=== PATIENT | female | born 1970 | race Caucasian/White ===

== ENCOUNTER 2024-01-25 12:13 | Observation (INO) | payer MEDICARE, MEDICAID, SELFPAY ==
[2024-01-25] VITALS (18 sets, daily range): BP systolic 108–120; BP diastolic 65–79; PULSE 70–83; TEMP 36.6–36.8; O2SAT 90–100; BMI 52.8; BMI 51.4
--- NOTE | 2024-01-25 12:31 | XR_ITS ---
The [address] [address] Patient Name: CHI GATES MRN: [id number] date: 1970 Sex: F Assigned Patient Location: ER Current Patient Location: ER Accession/Order Number: [id number] Exam Date: 01/25/2024 14:05 Report Date: 01/25/2024 14:19 At the request of: GASTON HOGAN Procedure: XR chest 2V EXAMINATION: XR chest 2V HISTORY: Shortness of breath COMPARISON: XR chest 09/03/2016 FINDINGS: LUNGS: No significant pulmonary parenchymal abnormalities. VASCULATURE: No increased pulmonary vasculature. PLEURA: No pneumothorax, effusion, or pleural thickening. CARDIAC: No cardiomegaly or cardiac silhouette abnormality. MEDIASTINUM: No visible mass or adenopathy. BONES: No fracture or visible bone lesion. OTHER: Negative. XR/XR chest 2V IMPRESSION: 1. No acute cardiopulmonary process. Electronically authenticated by: DAI HORNER Date: 01/25/2024 14:19
--- NOTE | 2024-01-25 12:31 | ECG_ITS ---
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
--- NOTE | 2024-01-25 12:31 | US_ITS ---
The [address] [address] Patient Name: CHI GATES MRN: [id number] date: 1970 Sex: F Assigned Patient Location: ER Current Patient Location: ER Accession/Order Number: [id number] Exam Date: 01/25/2024 12:55 Report Date: 01/25/2024 14:09 At the request of: GASTON HOGAN Procedure: US venous doppler LE LT EXAMINATION: US venous doppler LE LT HISTORY: sob , left leg swelling COMPARISON: No relevant comparison available. FINDINGS: REGION: Left lower extremity THROMBI: None. COMPRESSIBILITY: Normal compressibility. FLOW: Normal waveform and antegrade flow between 5 and 20 cm/s. OTHER: Prominent subcutaneous edema within calf. US/US venous doppler LE LT IMPRESSION: 1. No deep vein thrombus within the left lower extremity. 2. Slightly limited evaluation of calf veins due to subcutaneous edema. Electronically authenticated by: DAI HORNER Date: 01/25/2024 14:09
--- NOTE | 2024-01-25 12:33 | ED.GENADUL1 ---
HPI HPI - General Adult General Chief complaint: Shortness of Breath/Dyspnea Stated complaint: SWOLLEN LOWE EXTREMITIES Time Seen by Provider: 01/25/24 12:31 Source: patient Mode of arrival: walk-in Limitations: no limitations Related Data Allergies Allergy/AdvReac Type Severity Reaction Status Date / Time No Known Drug Allergies Allergy Verified 01/25/24 12:19 Opioid HPI Opioid Management Most Recent Opioid Data: No Data to Display Exam Constitutional Vital Signs, click to edit/add: Last Vital Signs Temp 97.8 F 01/25/24 12:19 Pulse 83 01/25/24 12:19 Resp 18 01/25/24 12:19 BP 120/65 01/25/24 12:19 Pulse Ox 97 01/25/24 12:19 O2 Del Method Room Air 01/25/24 12:19 Course Vital Signs Vital signs: Vital Signs Temperature 97.8 F 01/25/24 12:19 Pulse Rate 83 01/25/24 12:19 Respiratory Rate 18 01/25/24 12:19 Blood Pressure 120/65 01/25/24 12:19 Pulse Oximetry 97 01/25/24 12:19 Oxygen Delivery Method Room Air 01/25/24 12:19 Temperature 97.8 F 01/25/24 12:19 Pulse Rate 83 01/25/24 12:19 Respiratory Rate 18 01/25/24 12:19 Blood Pressure 120/65 01/25/24 12:19 Pulse Oximetry 97 01/25/24 12:19 Oxygen Delivery Method Room Air 01/25/24 12:19 Medical Decision Making ECG Data Attestation: I personally reviewed and interpreted this ECG as follows: (EKG interpretation. Normal sinus rhythm at 77 beats a minute. Normal axis deviation. No acute ST elevation, no acute ectopy. QTc of 412) Discharge Plan Discharge Chief Complaint: Shortness of Breath/Dyspnea Print Language: Mauritian Referrals: Physician,Non-Staff, MD [Primary Care Provider] - 1 week
[2024-01-25 12:45] LABS: Basophils Absolute Auto 0.1 10^3/uL (0.0-0.1); Basophils Percent Auto 0.8 % (0.2-2.0); Eosinophils Absolute Auto 0.3 10^3/uL (0.0-0.7); Eosinophils Percent Auto 2.8 % (0.9-7.0); Hematocrit 38.5 % (36.0-48.0); Hemoglobin 12.5 g/dL (12.0-16.0); Immature Granulocytes Abs Auto 0.06 10^3/uL (0.00-0.03); Immature Granulocytes Pct Auto 0.5 % (0.0-0.5); Lymphocytes Absolute Auto 2.8 10^3/uL (1.2-3.8); Lymphocytes Percent Auto 23.1 % (20.5-60.0); Mean Corpuscular HGB Conc 32.5 g/dL (29.9-35.2); Mean Corpuscular Hemoglobin 30.1 pg (26.7-34.0); Mean Corpuscular Volume 92.8 fL (81.0-99.0); Mean Platelet Volume 10.5 fL (9.5-13.5); Monocytes Absolute Auto 0.9 10^3/uL (0.3-0.8); Monocytes Percent Auto 7.5 % (1.7-12.0); Neutrophils Absolute Auto 7.8 10^3/uL (1.4-6.5); Neutrophils Percent Auto 65.3 % (43.0-75.0); Platelet Count 333 10^3/uL (150-450); Red Blood Count 4.15 10^6/uL (4.20-5.40); Red Cell Distribution Width 13.7 % (11.0-15.0)
[2024-01-25 13:11] LABS: Alanine Aminotransferase 27 U/L (14-59); Albumin Globulin Ratio 0.7; Albumin Level 2.8 g/dL (3.4-5.0); Alkaline Phosphatase 107 U/L (46-116); Anion Gap 11.6; Aspartate Amino Transferase 15 U/L (15-37); Bilirubin Total 0.2 mg/dL (0.2-1.0); Carbon Dioxide 30.3 mmol/L (21.0-32.0); Chloride 103 mmol/L (98-107); Estimated GFR (African America >60 (>=60); Estimated GFR (Non-African Ame >60 (>=60); Globulin 4.1 g/dL; Glucose 94 mg/dL (74-106); Potassium 3.9 mmol/L (3.5-5.1); Sodium 141 mmol/L (136-145); Total Protein 6.9 g/dL (6.4-8.2); Troponin I High Sensitivity 4.2 pg/mL (4.0-51.3)
[2024-01-25] MEDS: ALBUTEROL SULFATE 2.5 MG/3 ML VIAL NEB IH (13:27)
--- NOTE | 2024-01-25 13:29 | ED_ITS ---
Documented by User: JOY Nielson 01/25/24 15:20 HPI HPI - General Adult General Chief complaint: Shortness of Breath/Dyspnea Stated complaint: SWOLLEN LOWE EXTREMITIES Time Seen by Provider: 01/25/24 12:31 Source: patient Mode of arrival: walk-in Limitations: no limitations History of Present Illness HPI narrative: Patient is a 54-year-old female presents to the ER with concerns of shortness of breath and chest pain. Patient reports symptoms started 1 week ago, has noted a 12 pound weight gain over the course of a week with shortness of breath on e xertion and at rest. She smokes 1 pack/day, Patient was seen by her family doctor today and referred to the ER for more urgent workup. Patient notes that chest pain comes and goes at rest and with activity. Described as a heaviness, achiness across the chest. She denies any pleuritic pain. She notes progressive swelling in her extremities especially her left leg which she attributes to fluid retention. She reports a remote cardiac stress test years ago but no recent testing. Patient calm and in no distress at bedside. She denies recent cough or illness. Location: Reports chest Pain Consistency: Reports intermittent Exacerbating factors: Reports movement Treatments prior to arrival: Reports none Related Data Home Medications ?Medication ?Instructions ?Recorded ?Confirmed aripiprazole 10 mg tablet 10 mg PO .qhs 01/25/24 01/25/24 ergocalciferol (vitamin D2) 1,250 1,250 mcg PO .2 x week 01/25/24 01/25/24 mcg (50,000 unit) capsule levetiracetam 250 mg tablet 250 mg PO Q12H 01/25/24 01/25/24 levothyroxine 50 mcg tablet 50 mcg PO .qd 01/25/24 01/25/24 metformin 500 mg tablet,extended 500 mg PO .qd 01/25/24 01/25/24 release 24 hr paroxetine HCl 40 mg tablet 40 mg PO .qhs 01/25/24 01/25/24 potassium chloride 10 mEq 10 meq PO BID 01/25/24 01/25/24 capsule,extended release spironolactone 25 mg tablet 25 mg PO .qd 01/25/24 01/25/24 tizanidine 4 mg tablet 8 mg PO .qhs 01/25/24 01/25/24 topiramate 100 mg tablet 100 mg PO Q12H 01/25/24 01/25/24 Allergies Allergy/AdvReac Type Severity Reaction Status Date / Time No Known Drug Allergies Allergy Verified 01/25/24 12:19 Opioid HPI Opioid Management Most Recent Opioid Data: Last Pain Assessment 01/25/24 21:00 Last ORT Total Score 1 01/25/24 16:28 Last ORT Risk Category Low Risk 01/25/24 16:28 Review of Systems ROS Constitutional Denies: fever or chills Ears, nose, mouth, and throat Denies: throat pain or neck pain Cardiovascular Reports: chest pain, edema, swelling of feet/ankles and shortness of breath with exertion; Denies: palpitations Respiratory Reports: shortness of breath; Denies: cough or chest congestion Gastrointestinal Denies: abdominal pain, nausea or vomiting Musculoskeletal Reports: extremity swelling; Denies: back pain, neck pain or extremity pain Integumentary/Breast Denies: rash or itching Neurological Denies: headache Psychiatric Denies: anxiety Endocrine Denies: excessive urination Hematologic/Lymphatic Denies: easy bruising PFSH PFSH Medical History (Updated 01/25/24 @ 16:22 by Renee Crews) Diabetes ?E11.9 - Type 2 diabetes mellitus without complications (ICD-10) Hypothyroidism ?E03.9 - Hypothyroidism, unspecified (ICD-10) Anxiety ?F41.9 - Anxiety disorder, unspecified (ICD-10) Depression ?F32.A - Depression, unspecified (ICD-10) Surgical History (Updated 01/25/24 @ 16:22 by Renee Crews) H/O neck surgery ?Z98.890 - Other specified postprocedural states (ICD-10) Hx of tonsillectomy ?Z90.89 - Acquired absence of other organs (ICD-10) H/O left wrist surgery ?Z98.890 - Other specified postprocedural states (ICD-10) S/P foot surgery, left ?Z98.890 - Other specified postprocedural states (ICD-10) History of ankle surgery ?Z98.890 - Other specified postprocedural states (ICD-10) H/O: hysterectomy ?Z90.710 - Acquired absence of both cervix and uterus (ICD-10) Family History (Updated 01/25/24 @ 16:23 by Renee Crews) Mother Family history of CHF (congestive heart failure) Family history of COPD (chronic obstructive pulmonary disease) Family history of diabetes mellitus Family history of hypertension Family history of stroke Father Family history of diabetes mellitus Social History (Updated 01/25/24 @ 16:25 by Renee Crews) Within the past year, how often did you have a drink containing alcohol: never Score interpretation: A score less than 3 is consistent with normal alcohol consumption. Smoking status: Current every day smoker Nicotine containing products detail: 1 pack a day Non-prescribed substance use: denies use Highest level of school completed/degree received: high school graduate Are you now , , , , never or living with a partner: In a typical week, how many times do you talk on the telephone with family, friends, or neighbors: 3 or more times per week How often do you get together with friends or relatives: twice per week How often do you attend hinduism or voodoo services: never Do you belong to any clubs or organizations such as hinduism groups unions, fraternal or athletic groups, or school groups: no Total score: 1 Score interpretation: A score of less than or equal to 1 indicates the most socially isolated. Little interest or pleasure in doing things: not at all Feeling down, depressed, or hopeless: several days Feel stressed/tense/nervous/anxious/difficulty sleeping: not at all Gender Identity: female Exam Narrative Exam Narrative: Nurses notes and vital signs reviewed and patient is not hypoxic. General: The patient appears well and in no apparent distress. Patient is resting comfortably on cart. Skin: Warm, dry, no pallor noted.No evidence of rash Head: Normocephalic, atraumatic, Neck: Supple, trachea mid-line, no tenderness, no lymphadenopathy Eye: Pupils are equal, round and reactive to light, EOMI Ears, Nose, Mouth, and Throat: TM are clear, normal light reflex, oral mucosa is moist, no posterior oropharynx erythema or hypertrophy, uvula is mid-line Cardiovascular: Regular Rate and Rhythm Respiratory: Patient is in no distress, no accessory muscle use, lungs are clear to auscultation, no wheezing, rales or rhonchi. Chest Wall: no tenderness, No pleuritic pain Back: non-tender, no CVA tenderness, Musculoskeletal: normal ROM, no tenderness, 2+ edema bilateral lower legs, minimal pitting.No blistering GI: Normal bowel sounds, no tenderness to palpation, no masses appreciated. No rebound, guarding, or rigidity noted. Neurological: A&O x4 Psychiatric: Cooperative Constitutional Vital Signs, click to edit/add: Last Vital Signs Temp 98 F 01/25/24 19:28 Pulse 74 01/25/24 20:00 Resp 17 01/25/24 19:28 BP 113/79 01/25/24 19:28 Pulse Ox 93 L 01/25/24 20:20 O2 Del Method Room Air 01/25/24 20:20 Course Vital Signs Vital signs: Vital Signs Temperature 97.8 F 01/25/24 12:19 Pulse Rate 83 01/25/24 12:19 Respiratory Rate 18 01/25/24 12:19 Blood Pressure 120/65 01/25/24 12:19 Pulse Oximetry 97 01/25/24 12:19 Oxygen Delivery Method Room Air 01/25/24 12:19 Temperature 98 F 01/25/24 19:28 Pulse Rate 74 01/25/24 20:00 Respiratory Rate 17 01/25/24 19:28 Blood Pressure 113/79 01/25/24 19:28 Pulse Oximetry 93 L 01/25/24 20:20 Oxygen Delivery Method Room Air 01/25/24 20:20 Medical Decision Making MDM Narrative Medical decision making narrative: Patient presents with history concerning for fluid retention, no prominent heart murmur, patient given Lasix, aspirin under 162 mg p.o. She will be started a breathing treatment given her smoking history. Vascular ultrasound performed on left leg swelling.Patient currently without chest pain and does not appear short of breath at rest. Patient reevaluated, she is resting comfortably, she has had no return of chest pain and does not feel short of breath but is also not exerted herself. We discussed her ultrasound negative for DVT, chest x-ray without evidence of infiltrate. She does have slight elevation in her white blood cells but denies any fever. Patient has had stable vital signs. We have repeated her troponin Without any increase. We have not seen any appreciable signs of congestive heart failure or fluid retention as initially thought based on her clinical history. Case was discussed with Dr. Arshad who is agreeable to admission.. Lab Data Lab results reviewed: Yes I reviewed the patient's lab results Labs: Lab Results 01/25/24 01/25/24 Range/Units 12:31 14:34 WBC 12.0 H (4.0-11.0) 10^3/uL RBC 4.15 L (4.20-5.40) 10^6/uL Hgb 12.5 (12.0-16.0) g/dL Hct 38.5 (36.0-48.0) % MCV 92.8 (81.0-99.0) fL MCH 30.1 (26.7-34.0) pg MCHC 32.5 (29.9-35.2) g/dL RDW 13.7 (11.0-15.0) % Plt Count 333 (150-450) 10^3/uL MPV 10.5 (9.5-13.5) fL Neut % (Auto) 65.3 (43.0-75.0) % Lymph % (Auto) 23.1 (20.5-60.0) % [place] % (Auto) 7.5 (1.7-12.0) % Eos % (Auto) 2.8 (0.9-7.0) % Baso % (Auto) 0.8 (0.2-2.0) % Neut # (Auto) 7.8 H (1.4-6.5) 10^3/uL Lymph # (Auto) 2.8 (1.2-3.8) 10^3/uL [place] # (Auto) 0.9 H (0.3-0.8) 10^3/uL Eos # (Auto) 0.3 (0.0-0.7) 10^3/uL Baso # (Auto) 0.1 (0.0-0.1) 10^3/uL Abs Immat Gran (auto) 0.06 H (0.00-0.03) 10^3/uL Imm/Tot Granulo (auto) 0.5 (0.0-0.5) % PT 9.5 (9.0-11.6) sec INR <0.93 APTT 30.8 (22.3-36.2) sec Sodium 141 (136-145) mmol/L Potassium 3.9 (3.5-5.1) mmol/L Chloride 103 (98-107) mmol/L Carbon Dioxide 30.3 (21.0-32.0) mmol/L Anion Gap 11.6 BUN 12.0 (7.0-18.0) mg/dL Creatinine 0.75 (0.55-1.02) mg/dL Est GFR ( Amer) >60 (>=60) Est GFR (Non-Af Amer) >60 (>=60) BUN/Creatinine Ratio 16.0 Glucose 94 (74-106) mg/dL Calcium 9.0 (8.5-10.1) mg/dL Total Bilirubin 0.2 (0.2-1.0) mg/dL AST 15 (15-37) U/L ALT 27 (14-59) U/L Alkaline Phosphatase 107 (46-116) U/L Troponin I High Sens 4.2 <4.0 L (4.0-51.3) pg/mL NT-Pro-B Natriuret Pep 43.0 (<=900.0) pg/mL Total Protein 6.9 (6.4-8.2) g/dL Albumin 2.8 L (3.4-5.0) g/dL Globulin 4.1 g/dL Albumin/Globulin Ratio 0.7 Imaging Data Chest x-ray: Radiologist's impression: ITS Impressions Chest X-Ray 01/25/24 12:31 IMPRESSION: 1. No acute cardiopulmonary process. Electronically authenticated by: DAI HORNER Date: 01/25/2024 14:19 Venous Doppler Study 01/25/24 12:31 IMPRESSION: 1. No deep vein thrombus within the left lower extremity. 2. Slightly limited evaluation of calf veins due to subcutaneous edema. Electronically authenticated by: DAI HORNER Date: 01/25/2024 14:09 Chest CTA 01/25/24 15:16 IMPRESSION: 1. No pulmonary embolism. 2. No appreciable pulmonary infiltrates or acute findings to account for patient's symptoms. Electronically authenticated by: DAI HORNER Date: 01/25/2024 15:48 ECG Data Attestation: I personally reviewed and interpreted this ECG as follows: Interpretation: EKG interpretation: Emergency Department physician interpretation, normal sinus rhythm 77 , no ectopy, no ST segment elevation, normal axis. Discharge Plan Discharge Chief Complaint: Shortness of Breath/Dyspnea Clinical Impression: Chest pain, ROSALES (dyspnea on exertion) Patient Disposition: Admitted as Observation Discharge Date/Time: 01/25/24 15:50 Documented by User: Dami Loving MD 01/25/24 21:53 HPI HPI - General Adult General Chief complaint: Shortness of Breath/Dyspnea Stated complaint: SWOLLEN LOWE EXTREMITIES Time Seen by Provider: 01/25/24 12:31 Related Data Home Medications ?Medication ?Instructions ?Recorded ?Confirmed aripiprazole 10 mg tablet 10 mg PO .qhs 01/25/24 01/25/24 ergocalciferol (vitamin D2) 1,250 1,250 mcg PO .2 x week 01/25/24 01/25/24 mcg (50,000 unit) capsule levetiracetam 250 mg tablet 250 mg PO Q12H 01/25/24 01/25/24 levothyroxine 50 mcg tablet 50 mcg PO .qd 01/25/24 01/25/24 metformin 500 mg tablet,extended 500 mg PO .qd 01/25/24 01/25/24 release 24 hr paroxetine HCl 40 mg tablet 40 mg PO .qhs 01/25/24 01/25/24 potassium chloride 10 mEq 10 meq PO BID 01/25/24 01/25/24 capsule,extended release spironolactone 25 mg tablet 25 mg PO .qd 01/25/24 01/25/24 tizanidine 4 mg tablet 8 mg PO .qhs 01/25/24 01/25/24 topiramate 100 mg tablet 100 mg PO Q12H 01/25/24 01/25/24 Allergies Allergy/AdvReac Type Severity Reaction Status Date / Time No Known Drug Allergies Allergy Verified 01/25/24 12:19 Opioid HPI Opioid Management Most Recent Opioid Data: Last Pain Assessment 01/25/24 21:00 Last ORT Total Score 1 01/25/24 16:28 Last ORT Risk Category Low Risk 01/25/24 16:28 [facility] Medical History (Updated 01/25/24 @ 16:22 by Renee Crews) Diabetes ?E11.9 - Type 2 diabetes mellitus without complications (ICD-10) Hypothyroidism ?E03.9 - Hypothyroidism, unspecified (ICD-10) Anxiety ?F41.9 - Anxiety disorder, unspecified (ICD-10) Depression ?F32.A - Depression, unspecified (ICD-10) Surgical History (Updated 01/25/24 @ 16:22 by Renee Crews) H/O neck surgery ?Z98.890 - Other specified postprocedural states (ICD-10) Hx of tonsillectomy ?Z90.89 - Acquired absence of other organs (ICD-10) H/O left wrist surgery ?Z98.890 - Other specified postprocedural states (ICD-10) S/P foot surgery, left ?Z98.890 - Other specified postprocedural states (ICD-10) History of ankle surgery ?Z98.890 - Other specified postprocedural states (ICD-10) H/O: hysterectomy ?Z90.710 - Acquired absence of both cervix and uterus (ICD-10) Family History (Updated 01/25/24 @ 16:23 by Renee Crews) Mother Family history of CHF (congestive heart failure) Family history of COPD (chronic obstructive pulmonary disease) Family history of diabetes mellitus Family history of hypertension Family history of stroke Father Family history of diabetes mellitus Social History (Updated 01/25/24 @ 16:25 by Renee Crews) Within the past year, how often did you have a drink containing alcohol: never Score interpretation: A score less than 3 is consistent with normal alcohol consumption. Smoking status: Current every day smoker Nicotine containing products detail: 1 pack a day Non-prescribed substance use: denies use Highest level of school completed/degree received: high school graduate Are you now , , , , never or living with a partner: In a typical week, how many times do you talk on the telephone with family, friends, or neighbors: 3 or more times per week How often do you get together with friends or relatives: twice per week How often do you attend hinduism or voodoo services: never Do you belong to any clubs or organizations such as hinduism groups unions, fraternal or athletic groups, or school groups: no Total score: 1 Score interpretation: A score of less than or equal to 1 indicates the most socially isolated. Little interest or pleasure in doing things: not at all Feeling down, depressed, or hopeless: several days Feel stressed/tense/nervous/anxious/difficulty sleeping: not at all Gender Identity: female Exam Constitutional Vital Signs, click to edit/add: Last Vital Signs Temp 98 F 01/25/24 19:28 Pulse 74 01/25/24 20:00 Resp 17 01/25/24 19:28 BP 113/79 01/25/24 19:28 Pulse Ox 93 L 01/25/24 20:20 O2 Del Method Room Air 01/25/24 20:20 Course Vital Signs Vital signs: Vital Signs Temperature 97.8 F 01/25/24 12:19 Pulse Rate 83 01/25/24 12:19 Respiratory Rate 18 01/25/24 12:19 Blood Pressure 120/65 01/25/24 12:19 Pulse Oximetry 97 01/25/24 12:19 Oxygen Delivery Method Room Air 01/25/24 12:19 Temperature 98 F 01/25/24 19:28 Pulse Rate 74 01/25/24 20:00 Respiratory Rate 17 01/25/24 19:28 Blood Pressure 113/79 01/25/24 19:28 Pulse Oximetry 93 L 01/25/24 20:20 Oxygen Delivery Method Room Air 01/25/24 20:20 Medical Decision Making Lab Data Labs: Lab Results 01/25/24 01/25/24 Range/Units 12:31 14:34 WBC 12.0 H (4.0-11.0) 10^3/uL RBC 4.15 L (4.20-5.40) 10^6/uL Hgb 12.5 (12.0-16.0) g/dL Hct 38.5 (36.0-48.0) % MCV 92.8 (81.0-99.0) fL MCH 30.1 (26.7-34.0) pg MCHC 32.5 (29.9-35.2) g/dL RDW 13.7 (11.0-15.0) % Plt Count 333 (150-450) 10^3/uL MPV 10.5 (9.5-13.5) fL Neut % (Auto) 65.3 (43.0-75.0) % Lymph % (Auto) 23.1 (20.5-60.0) % [place] % (Auto) 7.5 (1.7-12.0) % Eos % (Auto) 2.8 (0.9-7.0) % Baso % (Auto) 0.8 (0.2-2.0) % Neut # (Auto) 7.8 H (1.4-6.5) 10^3/uL Lymph # (Auto) 2.8 (1.2-3.8) 10^3/uL [place] # (Auto) 0.9 H (0.3-0.8) 10^3/uL Eos # (Auto) 0.3 (0.0-0.7) 10^3/uL Baso # (Auto) 0.1 (0.0-0.1) 10^3/uL Abs Immat Gran (auto) 0.06 H (0.00-0.03) 10^3/uL Imm/Tot Granulo (auto) 0.5 (0.0-0.5) % PT 9.5 (9.0-11.6) sec INR <0.93 APTT 30.8 (22.3-36.2) sec Sodium 141 (136-145) mmol/L Potassium 3.9 (3.5-5.1) mmol/L Chloride 103 (98-107) mmol/L Carbon Dioxide 30.3 (21.0-32.0) mmol/L Anion Gap 11.6 BUN 12.0 (7.0-18.0) mg/dL Creatinine 0.75 (0.55-1.02) mg/dL Est GFR ( Amer) >60 (>=60) Est GFR (Non-Af Amer) >60 (>=60) BUN/Creatinine Ratio 16.0 Glucose 94 (74-106) mg/dL Calcium 9.0 (8.5-10.1) mg/dL Total Bilirubin 0.2 (0.2-1.0) mg/dL AST 15 (15-37) U/L ALT 27 (14-59) U/L Alkaline Phosphatase 107 (46-116) U/L Troponin I High Sens 4.2 <4.0 L (4.0-51.3) pg/mL NT-Pro-B Natriuret Pep 43.0 (<=900.0) pg/mL Total Protein 6.9 (6.4-8.2) g/dL Albumin 2.8 L (3.4-5.0) g/dL Globulin 4.1 g/dL Albumin/Globulin Ratio 0.7 Imaging Data Chest x-ray: Radiologist's impression: ITS Impressions Chest X-Ray 01/25/24 12:31 IMPRESSION: 1. No acute cardiopulmonary process. Electronically authenticated by: DAI HORNER Date: 01/25/2024 14:19 Venous Doppler Study 01/25/24 12:31 IMPRESSION: 1. No deep vein thrombus within the left lower extremity. 2. Slightly limited evaluation of calf veins due to subcutaneous edema. Electronically authenticated by: DAI HORNER Date: 01/25/2024 14:09 Chest CTA 01/25/24 15:16 IMPRESSION: 1. No pulmonary embolism. 2. No appreciable pulmonary infiltrates or acute findings to account for patient's symptoms. Electronically authenticated by: DAI HORNER Date: 01/25/2024 15:48 ECG Data Interpretation: EKG interpretation: Emergency Department physician interpretation, normal sinus rhythm 77 , no ectopy, no ST segment elevation, normal axis. QTc 412 Discharge Plan Discharge Chief Complaint: Shortness of Breath/Dyspnea Clinical Impression: Chest pain, ROSALES (dyspnea on exertion) Patient Disposition: Admitted as Observation Discharge Date/Time: 01/25/24 15:50
[2024-01-25] MEDS: FUROSEMIDE 40 MG/4 ML VIAL IVP (13:33)
[2024-01-25] MEDS: ASPIRIN 81 MG TAB.CHEW 162 MG PO (13:51)
[2024-01-25 13:59] LABS: Partial Thromboplastin Time 30.8 sec (22.3-36.2); Prothrombin Time 9.5 sec (9.0-11.6)
[2024-01-25 14:00] LABS: INR <0.93
[2024-01-25 15:03] LABS: Troponin I High Sensitivity <4.0 pg/mL (4.0-51.3)
--- NOTE | 2024-01-25 15:16 | CT_ITS ---
The [address] [address] Patient Name: CHI GATES MRN: [id number] date: 1970 Sex: F Assigned Patient Location: ER Current Patient Location: ER Accession/Order Number: [id number] Exam Date: 01/25/2024 15:20 Report Date: 01/25/2024 15:48 At the request of: SHAIKH AMELIE Procedure: CT angio chest EXAMINATION: CT angio chest HISTORY: Shortness of breath , leg swelling, weight gain COMPARISON: No relevant comparison available. TECHNIQUE: Multi-planar CT images were created with IV contrast. Axial, Coronal, and Sagittal images. Dose reduction techniques were achieved by using automated exposure control and/or adjustment of mA and/or kV according to patient size and/or use of iterative reconstruction technique. 3-D reconstruction was performed on a separate workstation. FINDINGS: VASCULATURE: No pulmonary embolism or abnormal opacity. LUNGS: No visible pulmonary disease. PLEURA: No mass, effusion, or pneumothorax. YOKASTA: No mass or adenopathy. MEDIASTINUM: No mass or adenopathy. CARDIAC: No enlargement, pericardial effusion, or pericardial thickening. AORTA: No aneurysm or dissection. CHEST WALL: No mass or axillary adenopathy. BONES: No bone lesion or fracture. LIMITED ABDOMEN: No suspicious findings. Limited images of the upper abdomen. OTHER: Negative. CT/CT angio chest IMPRESSION: 1. No pulmonary embolism. 2. No appreciable pulmonary infiltrates or acute findings to account for patient's symptoms. Electronically authenticated by: DAI HORNER Date: 01/25/2024 15:48
[2024-01-25 17:35] LABS: Troponin I High Sensitivity <4.0 pg/mL (4.0-51.3)
[2024-01-26] VITALS (7 sets, daily range): BP systolic 132; BP diastolic 65; PULSE 67–81; TEMP 36.4; O2SAT 92–94
[2024-01-26 05:40] LABS: Basophils Absolute Auto 0.1 10^3/uL (0.0-0.1); Basophils Percent Auto 0.8 % (0.2-2.0); Eosinophils Absolute Auto 0.3 10^3/uL (0.0-0.7); Hematocrit 38.3 % (36.0-48.0); Hemoglobin 12.2 g/dL (12.0-16.0); Immature Granulocytes Abs Auto 0.05 10^3/uL (0.00-0.03); Immature Granulocytes Pct Auto 0.5 % (0.0-0.5); Lymphocytes Absolute Auto 2.2 10^3/uL (1.2-3.8); Mean Corpuscular HGB Conc 31.9 g/dL (29.9-35.2); Mean Corpuscular Hemoglobin 29.7 pg (26.7-34.0); Mean Corpuscular Volume 93.2 fL (81.0-99.0); Mean Platelet Volume 11.8 fL (9.5-13.5); Monocytes Absolute Auto 0.8 10^3/uL (0.3-0.8); Monocytes Percent Auto 7.9 % (1.7-12.0); Neutrophils Absolute Auto 6.9 10^3/uL (1.4-6.5); Neutrophils Percent Auto 66.8 % (43.0-75.0); Platelet Count 225 10^3/uL (150-450); Red Blood Count 4.11 10^6/uL (4.20-5.40); Red Cell Distribution Width 13.9 % (11.0-15.0); White Blood Count 10.3 10^3/uL (4.0-11.0)
[2024-01-26 06:00] LABS: Alanine Aminotransferase 20 U/L (14-59); Albumin Globulin Ratio 0.7; Albumin Level 2.7 g/dL (3.4-5.0); Alkaline Phosphatase 103 U/L (46-116); Anion Gap 11.5; Aspartate Amino Transferase 20 U/L (15-37); BUN Creatinine Ratio 18.9; Bilirubin Total 0.5 mg/dL (0.2-1.0); Calcium 9.4 mg/dL (8.5-10.1); Carbon Dioxide 25.8 mmol/L (21.0-32.0); Chloride 104 mmol/L (98-107); Estimated GFR (African America >60 (>=60); Estimated GFR (Non-African Ame >60 (>=60); Globulin 4.1 g/dL; Glucose 96 mg/dL (74-106); Potassium 4.3 mmol/L (3.5-5.1); Sodium 137 mmol/L (136-145); Total Protein 6.8 g/dL (6.4-8.2)
[2024-01-26] MEDS: ENOXAPARIN SODIUM 40 MG/0.4 ML SYRINGE SUBQ (09:40)
--- NOTE | 2024-01-26 13:36 | PM.HP ---
HPI H&P: HPI History of Present Illness Chief complaint: Swollen Low Extremities, Chest Pain, SOB, Dyspnea Narrative: 54 y/o female to ER with chest pain and SOB. C/o increasing SOB over the past week. Increased LE edema and weight up 12 pounds. Mild chest tightness and heaviness. To ER and CE negative. BNP and chest x-ray normal, no evidence of fluid overload. WBC minimally elevated. CTA chest normal. Gave IV lasix and admitted for monitoring. Feels well this am. No further pain but still mild SOB with exertion. Edema improved. Reports stress test normal over 5 years ago. Opioid HPI Opioid Management Most Recent Opioid Data: Last Pain Assessment 01/26/24 11:00 Last ORT Total Score 1 01/25/24 16:28 Last ORT Risk Category Low Risk 01/25/24 16:28 Review of Systems ROS Constitutional Denies: fever, chills or fatigue Cardiovascular Reports: chest pain and edema; Denies: palpitations Respiratory Reports: shortness of breath; Denies: cough or wheezing Gastrointestinal Denies: abdominal pain, nausea, vomiting or diarrhea Genitourinary Denies: painful urination PFSH PFSH Medical History (Updated 01/26/24 @ 09:43 by Jose A Youngblood MD) Diabetes ?E11.9 - Type 2 diabetes mellitus without complications (ICD-10) Hypothyroidism ?E03.9 - Hypothyroidism, unspecified (ICD-10) Anxiety ?F41.9 - Anxiety disorder, unspecified (ICD-10) Depression ?F32.A - Depression, unspecified (ICD-10) Surgical History (Updated 01/25/24 @ 16:22 by Renee Crews) H/O neck surgery ?Z98.890 - Other specified postprocedural states (ICD-10) Hx of tonsillectomy ?Z90.89 - Acquired absence of other organs (ICD-10) H/O left wrist surgery ?Z98.890 - Other specified postprocedural states (ICD-10) S/P foot surgery, left ?Z98.890 - Other specified postprocedural states (ICD-10) History of ankle surgery ?Z98.890 - Other specified postprocedural states (ICD-10) H/O: hysterectomy ?Z90.710 - Acquired absence of both cervix and uterus (ICD-10) Family History (Updated 01/25/24 @ 16:23 by Renee Crews) Mother Family history of CHF (congestive heart failure) Family history of COPD (chronic obstructive pulmonary disease) Family history of diabetes mellitus Family history of hypertension Family history of stroke Father Family history of diabetes mellitus Social History (Updated 01/25/24 @ 16:25 by Renee Crews) Within the past year, how often did you have a drink containing alcohol: never Score interpretation: A score less than 3 is consistent with normal alcohol consumption. Smoking status: Current every day smoker Nicotine containing products detail: 1 pack a day Non-prescribed substance use: denies use Highest level of school completed/degree received: high school graduate Are you now , , , , never or living with a partner: In a typical week, how many times do you talk on the telephone with family, friends, or neighbors: 3 or more times per week How often do you get together with friends or relatives: twice per week How often do you attend mormon or mosque services: never Do you belong to any clubs or organizations such as mormon groups unions, [employer] or athletic groups, or school groups: no Total score: 1 Score interpretation: A score of less than or equal to 1 indicates the most socially isolated. Little interest or pleasure in doing things: not at all Feeling down, depressed, or hopeless: several days Feel stressed/tense/nervous/anxious/difficulty sleeping: not at all Gender Identity: female Meds Home Medications and Allergies Home Medications ?Medication ?Instructions ?Recorded ?Confirmed ?Type aripiprazole 10 mg tablet 10 mg PO .qhs 01/25/24 01/25/24 History ergocalciferol (vitamin D2) 1,250 1,250 mcg PO .2 x week 01/25/24 01/25/24 History mcg (50,000 unit) capsule levetiracetam 250 mg tablet 250 mg PO Q12H 01/25/24 01/25/24 History levothyroxine 50 mcg tablet 50 mcg PO .qd 01/25/24 01/25/24 History metformin 500 mg tablet,extended 500 mg PO .qd 01/25/24 01/25/24 History release 24 hr paroxetine HCl 40 mg tablet 40 mg PO .qhs 01/25/24 01/25/24 History spironolactone 25 mg tablet 25 mg PO .qd 01/25/24 01/25/24 History tizanidine 4 mg tablet 4 mg PO BID 01/25/24 01/26/24 History topiramate 100 mg tablet 100 mg PO Q12H 01/25/24 01/25/24 History furosemide 40 mg tablet 40 mg PO DAILY #30 tabs 01/26/24 Rx semaglutide 2 mg/dose (8 mg/3 mL) 2 mg subcut .WEEKLY 01/26/24 01/26/24 History subcutaneous pen injector (Ozempic) Allergies Allergy/AdvReac Type Severity Reaction Status Date / Time No Known Drug Allergies Allergy Verified 01/25/24 12:19 Exam Constitutional Vital Signs, click to edit/add: Last Vital Signs Temp 97.6 F 01/26/24 06:00 Pulse 68 01/26/24 09:56 Resp 18 01/26/24 08:00 BP 132/65 01/26/24 06:00 Pulse Ox 92 L 01/26/24 11:14 O2 Del Method Room Air 01/26/24 11:14 Documenting provider has reviewed patient's vital signs: yes Common normals: no apparent distress, oriented x3 and alert HENMT Common normals: normocephalic Eye Common normals: PERRL and EOMs intact bilaterally Respiratory Common normals: normal respiratory effort and clear to auscultation bilaterally Cardio Common normals: regular rate, regular rhythm, no gallops, no murmurs and no rub GI Common normals: Normal to inspection, nondistended, normoactive bowel sounds present and non-tender Extremity General: edema (1+edema on right, 2+ edema on left) Results Labs Labs: Short CBC 01/26/24 Range/Units 04:04 WBC 10.3 (4.0-11.0) 10^3/uL Hgb 12.2 (12.0-16.0) g/dL Hct 38.3 (36.0-48.0) % Plt Count 225 (150-450) 10^3/uL BMP 01/26/24 04:04 Sodium 137 Potassium 4.3 Chloride 104 Carbon Dioxide 25.8 BUN 14.0 Creatinine 0.74 Glucose 96 Calcium 9.4 Liver Function 01/26/24 Range/Units 04:04 Total Bilirubin 0.5 (0.2-1.0) mg/dL AST 20 (15-37) U/L ALT 20 (14-59) U/L Alkaline Phosphatase 103 (46-116) U/L Albumin 2.7 L (3.4-5.0) g/dL Assessment and Plan Assessment and Plan (1) Chest pain: (2) ROSALES (dyspnea on exertion): (3) Leg edema: Plan Patient not having ACS. CE negative and EKG normal. Presented with SOB and edema but unlikely to be CHF with normal BNP and no fluid overload on chest imaging. Likely venous insufficiency. Discharge home. Start oral lasix and continue aldactone. Follow up with PCP in 1 week and they can arrange for outpatient echo and possible stress test. Resume other home medication as directed.
== END 2024-01-26 12:20 | disposition home or self-care (01) ==
LOC: ER 15:20 → ICU 16:00 → MS 01-26 11:43 → ICU 01-28 15:18 → MS 01-28 15:18
PROVIDERS: Personal Emergency Response Attendant; Admitting Provider Internal Medicine; Emergency Provider Emergency Medicine; Visit Provider Family Medicine
DX: R07.9 Chest pain, unspecified (principal); R06.09 Other forms of dyspnea; R60.0 Localized edema; F17.210 Nicotine dependence, cigarettes, uncomplicated
CPT/HCPCS: 36415; 71046; 71275; 80053; 83880; 84484; 85025; 85610; 85730; 93005; 93971; 94640; 94761; 96372; 96374; 99285; 99406; G0378; Q9967

== ENCOUNTER 2024-04-29 15:59 | Outpatient (OUT) | payer MEDICARE, MEDICAID, SELFPAY ==
[2024-04-29 18:54] LABS: Alanine Aminotransferase 22 U/L (14-59); Albumin Globulin Ratio 0.8; Albumin Level 3.2 g/dL (3.4-5.0); Alkaline Phosphatase 101 U/L (46-116); Anion Gap 10.1; Aspartate Amino Transferase 13 U/L (15-37); BUN Creatinine Ratio 15.9; Bilirubin Total 0.3 mg/dL (0.2-1.0); Calcium 9.2 mg/dL (8.5-10.1); Carbon Dioxide 30.9 mmol/L (21.0-32.0); Chloride 103 mmol/L (98-107); Chol HDL Ratio 4.1; Cholesterol 218 mg/dL (<=200); Estimated GFR (African America >60 (>=60); Estimated GFR (Non-African Ame >60 (>=60); Globulin 3.9 g/dL; Glucose 94 mg/dL (74-106); HDL Cholesterol 53 mg/dL (40-60); Sodium 140 mmol/L (136-145); Thyroid Stimulating Hormone 0.824 uIU/mL (0.358-3.740); Total Protein 7.1 g/dL (6.4-8.2); Triglycerides 108 mg/dL (<=150); VLDL CHOLESTEROL 21.6 mg/dL
== END 2024-04-29 16:00 | disposition home or self-care (01) ==
LOC: LAB 16:05
PROVIDERS: PCP Nurse Practitioner; Visit Provider Nurse Practitioner
DX: E78.2 Mixed hyperlipidemia (principal); K76.0 Fatty (change of) liver, not elsewhere classified; E55.9 Vitamin D deficiency, unspecified; E11.9 Type 2 diabetes mellitus without complications
CPT/HCPCS: 36415; 80053; 80061; 82306; 84443